=== PATIENT | female | born 1980 ===

== ENCOUNTER 2019-11-14 06:00 | Day surgery (SDC) | payer OTHER ==
[~2019-11-14 06:00] MED LIST: COZAAR25 MG PO; LASIX40 MG PO; METROPOLOL PO; VOLTA PO; XANAFLEX PO; [UNRECOGNIZED DRUG - OTHER] IM
== END 2019-11-14 16:10 | disposition home or self-care (01) ==
LOC: CIR.AMB 06:00
DX: D12.9 Benign neoplasm of anus and anal canal (principal); K64.8 Other hemorrhoids; K64.4 Residual hemorrhoidal skin tags

== ENCOUNTER 2019-11-16 17:19 | Emergency (ER) | payer OTHER ==
[~2019-11-16] VITALS: Ht 157.5 cm; Wt 98.4 kg
== END 2019-11-16 21:43 | disposition home or self-care (01) ==
LOC: ER 17:19
DX: K91.89 Other postprocedural complications and disorders of digestive system (principal); N99.89 Other postprocedural complications and disorders of genitourinary system; R33.8 Other retention of urine; K59.09 Other constipation